=== PATIENT | female | born 1935 | race Native Hawaiian/Other Pacific Islander ===

== ENCOUNTER 2018-07-10 15:32 | Outpatient (CLI) | payer OTHER ==
[~2018-07-10 15:32] MED LIST: AMBIEN5 MG PO; NEXIUM40 MG PO; PLAVIX75 MG PO; ROSU10TA PO; TIROSINT88 MCG PO
== END 2018-07-10 19:27 | disposition home or self-care (01) ==
LOC: LAB 15:32
DX: D64.9 Anemia, unspecified (principal)
CPT/HCPCS: 82272

== ENCOUNTER 2018-08-08 08:53 | Outpatient (CLI) | payer OTHER | END 2018-08-08 21:30 | disposition home or self-care (01) | LOC: CT 08:53 | DX: R05 Cough (principal) ==

== ENCOUNTER 2018-12-19 07:48 | Outpatient (CLI) | payer OTHER ==
[~2018-12-19] VITALS: Ht 195.6 cm; Wt 73.5 kg
== END 2018-12-19 21:02 | disposition home or self-care (01) ==
LOC: NM 07:48
DX: R07.9 Chest pain, unspecified (principal); R06.02 Shortness of breath
CPT/HCPCS: A9500; J2785

== ENCOUNTER 2019-04-05 11:32 | Outpatient (CLI) | payer OTHER | END 2019-04-05 23:46 | disposition home or self-care (01) | LOC: RAD 11:32 | DX: M79.642 Pain in left hand (principal); M79.645 Pain in left finger(s) ==

== ENCOUNTER 2019-07-23 13:01 | Outpatient (CLI) | payer OTHER | END 2019-07-23 20:27 | disposition home or self-care (01) | LOC: LABW 13:01 | DX: K64.0 First degree hemorrhoids (principal) | CPT/HCPCS: 82272 ==

== ENCOUNTER 2020-09-03 08:22 | Outpatient (CLI) | payer OTHER | END 2020-09-03 21:04 | disposition home or self-care (01) | LOC: LAB 08:22 | PROVIDERS: ATTEND Internal Medicine | DX: R19.7 Diarrhea, unspecified (principal) | CPT/HCPCS: 82272; 83630; 87015; 87045; 87324; 87328; 87329; 87449; 87899 ==

== ENCOUNTER 2021-11-10 12:48 | Outpatient (CLI) | payer OTHER | END 2021-11-10 19:02 | disposition home or self-care (01) | LOC: RAD 12:48 | PROVIDERS: ATTEND Internal Medicine | DX: M54.2 Cervicalgia (principal); M25.511 Pain in right shoulder; W19.XXXA Unspecified fall, initial encounter ==

== ENCOUNTER 2022-02-12 11:32 | Outpatient (CLI) | payer OTHER | END 2022-02-12 18:58 | disposition home or self-care (01) | LOC: RAD 11:32 | PROVIDERS: ATTEND Internal Medicine | DX: R05.3 Chronic cough (principal); R07.89 Other chest pain ==

== ENCOUNTER 2022-10-08 17:17 | Observation (INO) | payer OTHER ==
[~2022-10-08] VITALS: Ht 165.1 cm; Wt 71.2 kg
[2022-10-08 17:20] VITALS: BP 201/81; TEMP 98.1
[2022-10-08 18:00] LABS: PLATELET COUNT 518 K/uL (152-353)
[2022-10-08 19:06] LABS: POTASSIUM 3.7 mmol/L (3.6-5.2)
[2022-10-08 21:00] VITALS: BP 190/82
[2022-10-08 23:30] VITALS: BP 176/71; TEMP 98.3
[2022-10-09 02:35] VITALS: BP 219/95; TEMP 98; Ht 165.1 cm; Wt 71.2 kg
[2022-10-09 04:00] VITALS: BP 169/74; TEMP 98.5
[2022-10-09 07:27] LABS: PLATELET COUNT 524 K/uL (152-353)
[2022-10-09 07:36] LABS: POTASSIUM 3.3 mmol/L (3.6-5.2)
[2022-10-09 08:00] VITALS: BP 192/74; TEMP 97.8
[2022-10-09 12:00] VITALS: BP 135/58; TEMP 98
[2022-10-09] MEDS ORDERED: NIFE30TA PO (13:58)
[2022-10-09] MEDS ORDERED: SIMV20TA2 PO (13:58)
[2022-10-09] MEDS ORDERED: TRINTELLIX5 MG PO (13:59)
[2022-10-09] MEDS ORDERED: OLMESARTAN MEDO40 MG PO (13:59)
[2022-10-09] MEDS ORDERED: PRASUGREL10 MG PO (14:00)
[2022-10-09] MEDS ORDERED: D3-5050000 UNIT PO (14:01)
[2022-10-09] MEDS ORDERED: [UNRECOGNIZED DRUG - OTHER] IM (14:01)
[2022-10-09] MEDS ORDERED: RANOLAZINE ER500 MG PO (14:02)
[2022-10-09 15:15] VITALS: BP 126/61
[2022-10-09 20:00] VITALS: BP 127/59; TEMP 98.2
[2022-10-10 00:05] VITALS: BP 137/62; TEMP 97.8
[2022-10-10 04:00] VITALS: BP 125/68; TEMP 97.8
[2022-10-10 05:05] LABS: POTASSIUM 3.5 mmol/L (3.6-5.2)
[2022-10-10 08:00] VITALS: BP 125/68; TEMP 97.8
[2022-10-10 12:00] VITALS: BP 148/67; TEMP 98
[2022-10-10] MEDS ORDERED: LOSA50TA PO (14:20)
[2022-10-10] MEDS ORDERED: AMLODIPINE BESYLATE PO (14:21)
== END 2022-10-10 15:13 | disposition home or self-care (01) ==
LOC: ED 17:17 → MED/SURG 20:01
PROVIDERS: ADMIT Family Medicine; ATTEND Internal Medicine
DX: I16.0 Hypertensive urgency (principal); R51.9 Headache, unspecified; R55 Syncope and collapse; E87.6 Hypokalemia; Z86.73 Personal history of transient ischemic attack (TIA), and cerebral infarction without residual deficits; E03.8 Other specified hypothyroidism
CPT/HCPCS: 36415; 80048; 80053; 81002; 84484; 85027; 87635; 93005; 96372; 96374; 99220; 99284; G0378; J0360; J1650; U0003

== ENCOUNTER 2022-10-13 13:16 | Outpatient (CLI) | payer OTHER ==
[~2022-10-13 13:16] MED LIST changes: +AMLODIPINE BESYLATE PO; +D3-5050000 UNIT PO; +LOSA50TA PO; +NIFE30TA PO; +OLMESARTAN MEDO40 MG PO; +PRASUGREL10 MG PO; +RANOLAZINE ER500 MG PO; +SIMV20TA2 PO; +TRINTELLIX5 MG PO; +[UNRECOGNIZED DRUG - OTHER] IM
== END 2022-10-13 19:31 | disposition home or self-care (01) ==
LOC: LABW 13:16
PROVIDERS: ATTEND Internal Medicine Cardiovascular Disease
DX: M31.6 Other giant cell arteritis (principal)
CPT/HCPCS: 36415; 85652

== ENCOUNTER 2023-03-31 12:44 | Outpatient (CLI) | payer OTHER | END 2023-03-31 22:30 | disposition home or self-care (01) | LOC: US 12:44 | PROVIDERS: ATTEND Internal Medicine | DX: I77.89 Other specified disorders of arteries and arterioles (principal); R42 Dizziness and giddiness; R06.09 Other forms of dyspnea; E78.2 Mixed hyperlipidemia; R55 Syncope and collapse; R53.1 Weakness ==

== ENCOUNTER 2023-05-08 10:39 | Emergency (ER) | payer OTHER ==
[~2023-05-08] VITALS: Ht 165.1 cm; Wt 68.5 kg
[2023-05-08 10:50] VITALS: BP 151/67; TEMP 98.1
[2023-05-08 11:34] LABS: PLATELET COUNT 285 K/uL (152-353)
[2023-05-08 11:45] LABS: POTASSIUM 3.7 mmol/L (3.6-5.2)
== END 2023-05-08 13:04 | disposition home or self-care (01) ==
LOC: ED 10:39
PROVIDERS: Family Medicine
DX: J06.9 Acute upper respiratory infection, unspecified (principal); R05.9 Cough, unspecified; K21.9 Gastro-esophageal reflux disease without esophagitis; I10 Essential (primary) hypertension
CPT/HCPCS: 80053; 85027; 87635; 99283; U0003